=== PATIENT | male | born 1975 | race Caucasian/White ===

== ENCOUNTER 2021-04-30 20:15 | Emergency (ER) | payer MEDICAID, SELFPAY ==
[2021-04-30 20:34] VITALS: BP 155/88; PULSE 82; RESP 20; TEMP 36.6; O2SAT 96; BMI 30.7
[2021-04-30 20:43] LABS: Glucose Point of Care 506 mg/dL (70-110)
--- NOTE | 2021-04-30 20:58 | W.ED.GENADLT ---
HPI - General Adult General: Chief complaint: General Medical Stated complaint: High Blood Sugar Time Seen by Provider: 04/30/21 20:40 Source: patient Mode of arrival: ambulatory Limitations: no limitations History of Present Illness: HPI narrative: Patient is a 45-year-old male who presents to ED today with a complaint of hyperglycemia. Patient is a known type II diabetic. He states he takes glipizide and one other oral medication that he does not remember the name of (possibly Januvia?). Patient does not know his last hemoglobin A1c. He states he is checks his sugars 2-3 times a week and they average 250-sweta. Patient states over the past week they have been in the 400s. He has not had any changes to his diabetic medications. Patient is completely asymptomatic. He states he is only here because he got scared when he saw it was that high. Associated symptoms: Deny chest pain, dyspnea, headache(s), nausea, rash, palpitations, syncope or vomiting Treatments prior to arrival: none Review of Systems Const: Denies: fever(s) or chills Eyes: Denies: change in vision or blurry vision Card: Denies: chest pain, palpitations, irregular heart rhythm, lightheadedness, syncope or dyspnea on exertion Resp: Denies: dyspnea, productive cough or pain on inspiration GI: Denies: abdominal pain, nausea, vomiting, heartburn or diarrhea : Reports: urinary frequency; Denies: flank pain, difficulty urinating, dysuria, urinary urgency or urinary hesitancy Musc: Denies: neck pain, back pain or joint pain Skin/Breast: Denies: rash Neuro: Denies: headache(s) or dizziness Physical Exam Const: COMMON NORMALS: no acute distress, patient oriented x3, alert and well nourished NUTRITIONAL APPEARANCE: overweight HENMT: COMMON NORMALS: normocephalic and atraumatic HEAD & SCALP: normocephalic and atraumatic Neck/C-Spine: COMMON NORMALS: full ROM, no lymphadenopathy, supple and no meningeal signs Chest: COMMONS NORMALS: normal inspection of the chest Resp: COMMON NORMALS: normal respiratory effort and clear to auscultation bilaterally AUSCULTATION: clear to auscultation bilaterally Cardio: COMMON NORMALS: regular rate and regular rhythm RATE: regular rate RHYTHM: regular rhythm GI: COMMON NORMALS: Normal to inspection, nondistended, normoactive bowel sounds present, Soft to palpation, non-tender, No hepatosplenomegaly present and no masses PALPATION: Yes Soft to palpation and Yes No hepatosplenomegaly present : COMMON NORMALS: Yes no CVA tenderness BLADDER/KIDNEY EXAM: Yes no CVA tenderness Back/Pelvis: COMMON NORMALS: no CVA tenderness and thoracic and lumbar spine normal to inspection Extremity: COMMON NORMALS: normal to inspection Neuro: WILBER COMA SCALE: document GCS findings Wilber coma scale eye opening: Spontaneous [place] coma scale verbal response: Orientated Wilber coma scale motor response: Obey commands Wilber coma scale total score: 15 COMMON NORMALS: patient oriented x3, moves all extremities, no focal motor deficits, no sensory deficits noted and gait normal SENSORIUM/ORIENTATION: Yes alert MENINGEAL SIGNS: Yes no meningeal signs Skin: COMMON NORMALS: no rashes or lesions noted GENERAL SKIN EXAM: no rashes or lesions noted Course Vital Signs: Vital signs: Vital Signs Temperature 98 F 04/30/21 20:34 Pulse Rate 82 04/30/21 20:34 Respiratory Rate 20 H 04/30/21 20:34 Blood Pressure 155/88 04/30/21 20:34 Pulse Oximetry 96 04/30/21 20:34 MDM - General Adult MDM Narrative: Medical decision making narrative: Patient is completely asymptomatic. His vital signs are stable. Labs overall are fairly unremarkable-mild nonspecific elevations to LFTs-no comparisons-he has no abdominal pain. No evidence for DKA. Blood glucose was 506 upon arrival. He is down to 380 now. He currently has a liter of fluids running. He states the normal glucose for him is 250. Commend he contact PCP tomorrow to schedule a follow-up visit. Recommend he keep a blood glucose log to discuss with them so they can make adjustments to his diabetic medications as needed. Lab Data: Labs: Lab Results 04/30/21 04/30/21 04/30/21 20:38 20:58 21:33 WBC RBC Hgb Hct MCV MCH MCHC RDW Plt Count MPV Neut % (Auto) Lymph % (Auto) Luna % (Auto) Eos % (Auto) Baso % (Auto) Neut # (Auto) Lymph # (Auto) Luna # (Auto) Eos # (Auto) Baso # (Auto) Nucleated RBC % (a uto) Nucleated RBCs # Specimen Type Arterial Sample Site Radial, left ABG pH 7.41 (7.35-7.45) ABG pCO2 42.3 mmHg mmHg (35-45) ABG pO2 87.0 mmHg mmHg (80.0-100.0) ABG HCO3 26.5 mmol/L H mmo l/L (22-26) ABG Base Excess 1.5 mmol/L mmol/L (-2.0-2.0) Osbaldo Test Pos Hematocrit 43.5 % % (42-52) O2 Delivery Device Room air FiO2 21.0 % % Heavy Coil Winder ID Buttr Sodium Potassium Chloride Carbon Dioxide Anion Gap BUN Creatinine GFR Calculation Glucose POC Glucose 506 mg/dL H* mg/d L (70-110) Calculated Osmolal ity Calcium Total Bilirubin AST ALT Alkaline Phosphata se Total Protein Albumin Globulin Urine Color Yellow (Yellow) Urine Appearance Clear (CLEAR) Urine pH 6 (5-7) Ur Specific Gravit y 1.015 (1.005-1.030) Urine Protein Neg (Negative) Urine Glucose (UA) 4+ H (Normal) Urine Ketones Negative (Negative) Urine Blood Neg (Negative) Urine Nitrate Negative (Negative) Urine Bilirubin Neg (Negative) Urine Urobilinogen Norm mg/dL mg/dL (Negative) Ur Leukocyte Katya ase Negative (Negative) Urine RBC None /hpf /hpf (0-2) Urine WBC None /hpf /hpf (0-5) Ur Squamous Epith Cells None /hpf /hpf (0-5) Amorphous Sediment Not Reportable Urine Bacteria None /hpf /hpf (NONE) Serum Ketones 04/30/21 04/30/21 04/30/21 22:35 22:35 22:35 WBC 6.2 10^3/uL 10^3/ uL (4.0-10.0) RBC 4.53 10^6/uL 10^6 /uL (4.1-5.3) Hgb 13.8 g/dL g/dL (11.7-16.6) Hct 40.4 % L % (42.0-52.0) MCV 89.2 fl fl (80-94) MCH 30.5 pg pg (28.0-34.0) MCHC 34.2 g/dL g/dL (30.0-36.0) RDW 12.5 % % (12.1-15.1) Plt Count 183 10^3/cmm 10^3 /cmm (130-400) MPV 11.8 fL H fL (7.4-10.4) Neut % (Auto) 39.3 % % Lymph % (Auto) 49.7 % % Luna % (Auto) 6.3 % % Eos % (Auto) 3.7 % % Baso % (Auto) 0.8 % % Neut # (Auto) 2.42 10^3/uL 10^3 /uL (1.8-7.7) Lymph # (Auto) 3.1 10^3/uL 10^3/ uL (0.8-4.8) Luna # (Auto) 0.4 10^3/uL 10^3/ uL (0.2-0.9) Eos # (Auto) 0.2 10^3/uL 10^3/ uL (0.0-0.8) Baso # (Auto) 0.1 10^3/uL 10^3/ uL (0.0-0.1) Nucleated RBC % (a uto) 0 % % Nucleated RBCs # 0.0 /100WBC /100W BC Specimen Type Sample Site ABG pH ABG pCO2 ABG pO2 ABG HCO3 ABG Base Excess Osbaldo Test Hematocrit O2 Delivery Device FiO2 Heavy Coil Winder ID Sodium 133 mmol/L L mmol /L (136-145) Potassium 4.3 mmol/L mmol/L (3.5-5.1) Chloride 98 mmol/L mmol/L (98-107) Carbon Dioxide 21 mmol/L L mmol/ L (22-29) Anion Gap 18.3 (5-19) BUN 12 mg/dL mg/dL (6-20) Creatinine 0.5 mg/dL L mg/dL (0.7-1.2) GFR Calculation 178.2 mL/min H mL /min (90-130) Glucose 381 mg/dL H mg/dL (65-115) POC Glucose Calculated Osmolal ity 291 mOsm/kg mOsm/ kg (285-295) Calcium 8.9 mg/dL mg/dL (8.5-10.5) Total Bilirubin 0.2 mg/dL mg/dL (0.15-1.2) AST 121 U/L H U/L (0-40) ALT 166 U/L H U/L (0-41) Alkaline Phosphata se 89 IU/L IU/L (40-130) Total Protein 6.9 g/dL g/dL (6.6-8.7) Albumin 3.9 g/dL g/dL (3.5-5.2) Globulin 3.0 g/dL g/dL (1.3-4.6) Urine Color Urine Appearance Urine pH Ur Specific Gravit y Urine Protein Urine Glucose (UA) Urine Ketones Urine Blood Urine Nitrate Urine Bilirubin Urine Urobilinogen Ur Leukocyte Katya ase Urine RBC Urine WBC Ur Squamous Epith Cells Amorphous Sediment Urine Bacteria Serum Ketones Negative (Negative) Discharge Plan Discharge Patient Disposition: Home Clinical Impression: Acute hyperglycemia Condition: Stable Discharge Orders: Discharge ED (Routine); Ordered 04/30/21 Ordered By: Alea Bhatia Referrals: Kenna Stokes DO [Primary Care Provider] - Patient Instructions: Diabetes and Diet, Diabetic Hyperglycemia (ED) Coding Level of Care Code ED Ceiling Insulation Blower for Chg Fwd Exam Comprehensive
[2021-04-30 21:09] LABS: ABG PCO2 42.3 mmHg (35-45); ABG PH Result 7.41 (7.35-7.45); Arterial Blood Gas Hematocrit 43.5 % (42-52); Base Excess ABG 1.5 mmol/L (-2.0-2.0); Blood Gas Allen Test Pos; Blood Gas Sample Site Radial, left; Blood Gas Sample Type Arterial; HCO3 ABG 26.5 mmol/L (22-26); Oxygen Device ROOM AIR
[2021-04-30 22:19] LABS: Add Urine Microscopic? YES; Bilirubin Urine Neg (Negative); Blood Urine Neg (Negative); Glucose Urine UA 4+ (Normal); Ketones Urine Negative (Negative); Leukocyte Esterase Urine Negative (Negative); Nitrate Urine Negative (Negative); Protein Urine Neg (Negative); Specific Gravity, Urine 1.015 (1.005-1.030); Urine Appearance Clear (CLEAR); Urine Color Yellow (Yellow); Urobilinogen Urine Norm (Negative); pH Urine 6 (5-7)
[2021-04-30] MEDS: sodium chloride 0.9% 1,000 ML 999 ML IV (22:42)
[2021-04-30 22:54] LABS: Basophils # 0.1 10^3/uL (0.0-0.1); Basophils % 0.8 %; Eosinophils # 0.2 10^3/uL (0.0-0.8); Eosinophils % 3.7 %; Hematocrit 40.4 % (42.0-52.0); Hemoglobin 13.8 g/dL (11.7-16.6); Lymphocytes # 3.1 10^3/uL (0.8-4.8); Lymphocytes % 49.7 %; Mean Corpuscular HGB Conc 34.2 g/dL (30.0-36.0); Mean Corpuscular Hemoglobin 30.5 pg (28.0-34.0); Mean Corpuscular Volume 89.2 fl (80-94); Mean Platelet Volume 11.8 fL (7.4-10.4); Monocytes # 0.4 10^3/uL (0.2-0.9); Monocytes % 6.3 %; Neutrophils # 2.42 10^3/uL (1.8-7.7); Neutrophils % 39.3 %; Nucleated Red Blood Cells % 0 %; Platelet Count 183 10^3/cmm (130-400); Red Blood Count 4.53 10^6/uL (4.1-5.3); Red Cell Distribution Width 12.5 % (12.1-15.1); White Blood Count 6.2 10^3/uL (4.0-10.0)
[2021-04-30 22:56] LABS: Ketone (Acetest) Serum Negative (Negative)
[2021-04-30 23:05] LABS: Albumin Level 3.9 g/dL (3.5-5.2); Alkaline Phosphatase 89 IU/L (40-130); Blood Urea Nitrogen 12 mg/dL (6-20); Calcium 8.9 mg/dL (8.5-10.5); Carbon Dioxide 21 mmol/L (22-29); Chloride 98 mmol/L (98-107); Glomerular Filtration Rate 178.2 mL/min (90-130); Glucose 381 mg/dL (65-115); Osmolality Calculated 291 mOsm/kg (285-295); Sodium 133 mmol/L (136-145); Total Bilirubin 0.2 mg/dL (0.15-1.2); Total Protein 6.9 g/dL (6.6-8.7)
[2021-04-30 23:08] LABS: Anion Gap 18.3 (5-19); Potassium 4.3 mmol/L (3.5-5.1)
[2021-04-30 23:12] LABS: Slide Review Slide Review Perform
[2021-04-30 23:18] LABS: Alanine Aminotransferase 166 U/L (0-41); Aspartate Amino Transferase 121 U/L (0-40)
[2021-04-30 23:55] VITALS: BP 164/96; PULSE 60; RESP 18; O2SAT 97
== END 2021-04-30 23:50 | disposition home or self-care (01) ==
PROVIDERS: Emergency Medicine; Emergency Provider Physician Assistant; PCP Family Medicine
DX: E11.65 Type 2 diabetes mellitus with hyperglycemia (principal); Z79.84 Long term (current) use of oral hypoglycemic drugs
CPT/HCPCS: 36416; 36600; 80053; 81001; 82009; 82803; 82962; 85025; 96360; 99283; J7030

== ENCOUNTER 2024-02-08 12:47 | Outpatient (CLI) | payer MEDICAID, SELFPAY ==
--- NOTE | 2024-02-08 12:56 | XR_ITS ---
WS: [id number] Exam: XR hand RT 2V [id number] Date/Time of Exam: 02/08/2024 1:02 PM Reason For Exam: CHRONIC PAIN OF RIGHT WRIST No acute fracture. Again noted is fracture of the scaphoid as previously described. No soft tissue fo reign bodies are noted. XR/XR hand RT 2V [id number] IMPRESSION: 1. No fractures of the hand. 2. Fractured scaphoid as previously described.
--- NOTE | 2024-02-08 12:56 | XR_ITS ---
WS: [id number] Exam: XR wrist RT min 3V* [id number] Date/Time of Exam: 02/08/2024 1:02 PM Reason For Exam: CHRONIC PAIN OF RIGHT WRIST There is a fracture through the proximal one third of the scaphoid. No significant displacement. Ther e may be early bony sclerosis of the scaphoid. There is degenerative change of the radiocarpal joint. Soft tissues are unremarkable. XR/XR wrist RT min 3V* [id number] IMPRESSION: 1. Fracture through the proximal one third of the scaphoid without significant displacement. Fracture age difficult to determine. This could be acute or suba cute. There may be early bony sclerosis of the scaphoid that might indicate ost eonecrosis. Degenerative change of the radiocarpal joint.
== END 2024-02-08 12:48 | disposition home or self-care (01) ==
LOC: RAD 12:49
PROVIDERS: PCP Family Medicine; Visit Provider Family Medicine
DX: S62.034A Nondisplaced fracture of proximal third of navicular [scaphoid] bone of right wrist, initial encounter for closed fracture (principal); M19.031 Primary osteoarthritis, right wrist; X58.XXXA Exposure to other specified factors, initial encounter
CPT/HCPCS: 73110; 73120

== ENCOUNTER → 2024-02-21 08:29 | Outpatient (BNVA) | payer MEDICAID, SELFPAY | PROVIDERS: PCP Family Medicine; Referring Provider Family Medicine; Visit Provider Orthopaedic Surgery | DX: M25.531 Pain in right wrist (principal); S62.034A Nondisplaced fracture of proximal third of navicular [scaphoid] bone of right wrist, initial encounter for closed fracture; X58.XXXA Exposure to other specified factors, initial encounter | CPT/HCPCS: 73110; 99203 ==